=== PATIENT | female | born 1985 | race Native Hawaiian/Other Pacific Islander ===

== ENCOUNTER 2017-03-05 11:41 | Observation (INO) | payer BC ==
[~2017-03-05] VITALS: Ht 162.6 cm; Wt 119.5 kg
[2017-03-05 12:51] LABS: PLATELET COUNT 218 K/uL (152-353)
[2017-03-05 13:01] VITALS: BP 112/58; TEMP 97.6; Ht 162.6 cm; Wt 119.5 kg
[2017-03-05 13:13] LABS: POTASSIUM 3.9 mmol/L (3.6-5.2); SODIUM 138 mmol/L (136-145)
[2017-03-05 16:00] VITALS: BP 132/62; TEMP 98
[2017-03-05 20:00] VITALS: BP 116/60; TEMP 98.2
[2017-03-06] VITALS: BP 110/60; TEMP 98.2
[2017-03-06 04:00] VITALS: BP 103/53; TEMP 98
[2017-03-06 06:11] LABS: PLATELET COUNT 191 K/uL (152-353)
[2017-03-06 06:19] LABS: POTASSIUM 3.6 mmol/L (3.6-5.2); SODIUM 137 mmol/L (136-145)
[2017-03-06 08:00] VITALS: BP 93/39; TEMP 98.6
[2017-03-06 11:52] VITALS: BP 103/44; TEMP 98.4
[2017-03-06 16:00] VITALS: BP 99/44; TEMP 98.2
[2017-03-06 20:00] VITALS: BP 102/51; TEMP 98.6
[2017-03-07] VITALS: BP 100/52; TEMP 99
[2017-03-07 04:00] VITALS: BP 129/58; TEMP 98.6
[2017-03-07 06:47] LABS: PLATELET COUNT 191 K/uL (152-353)
[2017-03-07 08:00] VITALS: BP 97/49; TEMP 98.2
[2017-03-07 08:49] LABS: POTASSIUM 3.8 mmol/L (3.6-5.2); SODIUM 140 mmol/L (136-145)
[2017-03-07 11:55] VITALS: BP 115/56; TEMP 98
== END 2017-03-07 16:25 | disposition home or self-care (01) ==
LOC: MED/SURG 11:41
PROVIDERS: ADMIT Family Medicine
DX: K52.89 Other specified noninfective gastroenteritis and colitis (principal); R10.84 Generalized abdominal pain; R11.2 Nausea with vomiting, unspecified; K56.0 Paralytic ileus
CPT/HCPCS: 80053; 81025; 82272; 83735; 85027; 87015; 87040; 87045; 87328; 87329; 87899; 96365; 96366; 96367; 96375; 99220; G0378; G0379; J0744; J2175; J3490; Q9963

== ENCOUNTER 2020-06-18 11:38 | Observation (INO) | payer BC ==
[~2020-06-18] VITALS: Ht 162.6 cm; Wt 89.4 kg
[2020-06-18 12:55] LABS: PLATELET COUNT 283 K/uL (152-353)
[2020-06-18 13:07] LABS: SODIUM 141 mmol/L (136-145)
[2020-06-18 14:42] VITALS: BP 104/53; TEMP 98.9; Ht 162.6 cm; Wt 89.4 kg
[2020-06-18 16:00] VITALS: BP 76/30; TEMP 98.9
[2020-06-18 20:00] VITALS: BP 100/51; TEMP 98.7
[2020-06-19] VITALS: BP 101/51; TEMP 98.2
[2020-06-19 04:00] VITALS: BP 101/43; TEMP 98.3
[2020-06-19 04:42] LABS: PLATELET COUNT 264 K/uL (152-353)
[2020-06-19 08:00] VITALS: BP 102/46; TEMP 98.5
[2020-06-19 12:00] VITALS: BP 95/49; TEMP 98.3
[2020-06-19 16:00] VITALS: BP 98/45; TEMP 98.5
== END 2020-06-19 19:15 | disposition home or self-care (01) ==
LOC: MED/SURG 11:38
PROVIDERS: ADMIT Family Medicine
DX: K80.80 Other cholelithiasis without obstruction (principal); E86.0 Dehydration; R55 Syncope and collapse; K92.1 Melena
CPT/HCPCS: 36415; 80053; 82150; 82272; 82550; 83690; 83735; 84100; 84484; 85027; 87040; 87086; 87088; 93005; 96365; 96366; 96367; 96375; 99220; G0378; G0379; J0744; J2543; J2920; Q9963

== ENCOUNTER 2021-06-23 10:23 | Outpatient (CLI) | payer BC | END 2021-06-23 22:36 | disposition home or self-care (01) | LOC: CT 10:23 | PROVIDERS: ATTEND Nurse Practitioner Primary Care | DX: R10.9 Unspecified abdominal pain (principal) | CPT/HCPCS: Q9963 ==